=== PATIENT | female | born 1955 | race Hispanic/Latino ===

== ENCOUNTER → 2020-11-08 | Outpatient (CLI) | payer OTHER | END | disposition home or self-care (01) | LOC: RAH 13:28 | PROVIDERS: ATTEND Internal Medicine Cardiovascular Disease | DX: Z13.6 Encounter for screening for cardiovascular disorders (principal) | CPT/HCPCS: 75571 ==

== ENCOUNTER 2021-05-14 08:53 | Day surgery (SDC) | payer MEDICARE ==
[2021-05-14] VITALS (18 sets, daily range): BP systolic 111–150; BP diastolic 53–75
[~2021-05-14] VITALS: Ht 152.4 cm; Wt 84.2 kg
[~2021-05-14 08:53] MED LIST: 0.9%NACL 1000ML 1,000 ML IV ONE; AEC81 PO; AMLO2.5T4 PO; ATOR20TA65 PO; GABA-529 PO; GLYB5TAB8 PO; HYDR12.54 PO; INDOMETHACIN 50 MG SUPP.RECT RC SCH; LISI40TA9 PO; METF-446 PO; METO100T14 PO; PIOG15TA66 PO
[2021-05-14] MEDS ORDERED: FENTANYL CITRATE PF 50 MCG/1 ML 2ML VIAL ONE (12:05)
[2021-05-14] MEDS ORDERED: MIDAZOLAM HCL 1 MG/ML 2ML VIAL ONE (12:05)
[2021-05-14] MEDS ORDERED: IOHEXOL-350 50ML VIAL IV ONE (12:07)
[2021-05-14] MEDS ORDERED: LIDOCAINE HCL 1% 20 ML VIAL ONE (12:21)
== END 2021-05-14 15:00 | disposition home or self-care (01) ==
LOC: DAH 08:53 → ENDO 08:53
PROVIDERS: ATTEND Internal Medicine Gastroenterology
DX: K80.50 Calculus of bile duct without cholangitis or cholecystitis without obstruction (principal); Z20.822 Contact with and (suspected) exposure to COVID-19; I10 Essential (primary) hypertension; I25.10 Atherosclerotic heart disease of native coronary artery without angina pectoris; E11.9 Type 2 diabetes mellitus without complications; E78.5 Hyperlipidemia, unspecified; N28.89 Other specified disorders of kidney and ureter; Z90.49 Acquired absence of other specified parts of digestive tract; Z98.890 Other specified postprocedural states; Z79.899 Other long term (current) drug therapy
CPT/HCPCS: 43262; 43264; 43275; 74328; 82948 ×2; 87635; 93005; A4215; A4221; A4222; A4223; A4606; A4657; A4663; C1769; C1773; C9803; J2250; J3010; J7030; Q9967; 74330